=== PATIENT | female | born 1960 | race Caucasian/White ===

== ENCOUNTER 2016-06-16 13:17 | Outpatient (CLI) | payer OTHER | END 2016-06-16 13:18 | disposition home or self-care (01) | DX: Z12.31 Encounter for screening mammogram for malignant neoplasm of breast (principal) ==

== ENCOUNTER 2016-06-16 13:18 | Outpatient (CLI) | payer OTHER | END 2016-06-16 13:19 | disposition home or self-care (01) | DX: N83.209 Unspecified ovarian cyst, unspecified side (principal) ==

== ENCOUNTER 2018-07-19 01:56 | Emergency (ER) | payer BC ==
--- NOTE | 2018-07-19 02:10 | ED Physician Documentation ---
PD HPI CHEST PAIN - Stated complaint Stated Complaint: CHEST PRESSURE/ IRREG HB/NAUSEA - Chief complaint Chief Complaint: Cardiac - History obtained from History obtained from: Patient - History of Present Illness Timing - onset: Enter time (22:30), Today Timing - onset during: Rest Timing - details: Gradual onset, Now resolved, Waxing and waning Quality: Pressure Location: Substernal Radiation: Other (no radiation) Improved by: Nothing Worsened by: Other (no exacerbating factors) Associated symptoms: Palpitations. No: Shortness of air, Diaphoresis, Nausea, Vomiting Similar symptoms before: Diagnosis (PVCs) Recently seen: Clinic - Additional information Additional information: "I was having a lot of PVCs" tonight, approximately 10:30 PM while in bed but awake. 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 She used to have frequent PVCs attributed to MVP, but hadn't had such frequent PVCs for many years until recently and tonight it became particularly frequent and associated with mild chest pressure. Symptoms have resolved by the time of this evaluation (except occasional skipped beat palpitation). She has upcoming appointment with cardiology scheduled for September 13 Review of Systems Cardiac: reports: Chest pain / pressure, Palpitations. denies: Pedal edema, Calf pain Respiratory: reports: Reviewed and negative GI: reports: Reviewed and negative Musculoskeletal: denies: Extremity swelling PD PAST MEDICAL HISTORY - Past Medical History Past Medical History: Yes Cardiovascular: Valve disorder Respiratory: None Neuro: Migraines Endocrine/Autoimmune: None, HyPOthyroidism GI: None TELLER: None : None HEENT: None Psych: Claustrophobia Musculoskeletal: None Derm: None - Past Surgical History General: Cholecystectomy Ortho: Other /TELLER: section - Present Medications Home Medications: Ambulatory Orders Medication Instructions Recorded Confirmed Levothyroxine [Synthroid] 88 mcg PO QDAC 07/19/18 07/19/18 - Allergies Allergies/Adverse Reactions: Allergies Allergy/AdvReac Type Severity Reaction Status Date / Time No Known Drug Allergies Allergy Verified 07/19/18 02:04 - Social History Does the pt smoke?: No Smoking Status: Never smoker Does the pt drink ETOH?: No Does the pt have substance abuse?: No - Immunizations Immunizations are current?: Yes PD ED PE NORMAL - Vitals Vital signs reviewed: Yes - General General: Alert and oriented X 3, No acute distress, Well developed/nourished - Neck Neck: Supple, no meningeal sign - Cardiac Cardiac: RRR (occasional extrasystole (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)), No murmur, No gallop, No rub - Respiratory Respiratory: No respiratory distress, Clear bilaterally - Abdomen Abdomen: Soft, Non tender - Derm Derm: Normal color, Warm and dry - Extremities Extremities: No edema Results - Vitals Vitals: Vital Signs - 24 hr 07/19/18 07/19/18 07/19/18 01:59 02:03 03:13 Temperature 36.5 C 36.7 C Heart Rate 85 70 60 Respiratory 19 13 Rate Blood Pressure 139/78 H 122/66 O2 Saturation 97 94 Oxygen O2 Source Room air - EKG (time done) No standard instances Rate: Rate (enter#) (67) Rhythm: NSR [place]: LAD Intervals: Normal [place], RBBB QRS: LVH Ischemia: Normal ST segments Other comments: Other comments (PVC) - Labs Labs: Laboratory Tests 07/19/18 07/19/18 07/19/18 02:05 02:05 02:05 WBC 7.4 RBC 4.35 Hgb 13.4 Hct 39.8 MCV 91.3 MCH 30.8 MCHC 33.7 RDW 12.9 Plt Count 237 MPV 9.1 Neut # (Auto) 4.6 Lymph # (Auto) 1.9 [place] # (Auto) 0.7 Eos # (Auto) 0.2 Baso # (Auto) 0.0 Absolute Nucleated RBC 0.00 Nucleated RBC % 0.0 Sodium 141 Potassium 3.5 Chloride 104 Carbon Dioxide 26 Anion Gap 11.0 BUN 15 Creatinine 0.7 Estimated GFR (MDRD) 86 L Glucose 139 H Calcium 9.5 Troponin I < 0.04 - Rads (name of study) chest xray Radiology: Prelim report reviewed, See rad report PD MEDICAL DECISION MAKING - ED course Complexity details: reviewed results, re-evaluated patient, considered differential, d/w patient Departure - Departure Disposition: 01 Home, Self Care Clinical Impression: Chest pain, Palpitations Condition: Good Instructions: ED Chest Pain Atypical Unkn Cause, ED Palpitations Follow-Up: Jermaine Albert MD [Primary Care Provider] - Discharge Date/Time: 07/19/18 03:23
[2018-07-19 02:37] LABS: BASOPHILS % (AUTO) 0.6 %; EOSINOPHILS # (AUTO) 0.2 10^3/uL (0.0-0.7); HGB - HEMOGLOBIN 13.4 g/dL (12.0-16.0); LYMPHOCYTES # (AUTO) 1.9 10^3/uL (1.5-3.5); LYMPHOCYTES % (AUTO) 25.7 %; MEAN CORPUSCULAR HEMOGLOBIN 30.8 pg (27.0-31.0); MEAN CORPUSCULAR HGB CONC 33.7 g/dL (32.0-36.0); MEAN CORPUSCULAR VOLUME 91.3 fL (81.0-99.0); MEAN PLATELET VOLUME 9.1 fL (7.9-10.8); MONOCYTES # (AUTO) 0.7 10^3/uL (0.0-1.0); MONOCYTES % (AUTO) 8.8 %; NEUTROPHILS # (AUTO) 4.6 10^3/uL (1.5-6.6); NEUTROPHILS % (AUTO) 61.9 %; PLT - PLATELET COUNT 237 10^3/uL (130-450); RED BLOOD COUNT 4.35 10^6/uL (4.20-5.40); RED CELL DISTRIBUTION WIDTH 12.9 % (12.0-15.0); WHITE BLOOD COUNT 7.4 x10^3/uL (4.8-10.8)
[2018-07-19 02:40] LABS: CALCIUM 9.5 mg/dL (8.5-10.3); CREATININE 0.7 mg/dL (0.4-1.0)
--- NOTE | 2018-07-19 03:01 | XRAY Report ---
Reason: chest pain Procedure Date: 07/19/2018 Accession Number: [id number] / [id number] Procedure: XR - Chest 2 View X-Ray CPT Code: 87675 FULL RESULT: EXAM: CHEST RADIOGRAPHY EXAM DATE: 07/19/2018 02:41 AM. CLINICAL HISTORY: Chest pain, PVCs COMPARISON: XR CHEST PA AND LAT 12/17/2007 2:53 PM XR CHEST PA AND LAT 01/25/2010 4:40 PM. TECHNIQUE: 2 views. FINDINGS: Lungs/Pleura: No focal opacities evident. No pleural effusion. No pneumothorax. Normal volumes. Mediastinum: Heart and mediastinal contours are unremarkable. Other: Right upper quadrant clips indicate prior cholecystectomy. IMPRESSION: Stable appearance of the chest without acute cardiopulmonary abnormality. RADIA
[2018-07-19 03:15] VITALS: BP 122/66
== END 2018-07-19 03:23 | disposition home or self-care (01) ==
LOC: ED 01:56
DX: R07.89 Other chest pain (principal); I49.3 Ventricular premature depolarization; I38 Endocarditis, valve unspecified; E03.9 Hypothyroidism, unspecified; Z79.899 Other long term (current) drug therapy
CPT/HCPCS: 36415; 71046; 80048; 84484; 85025; 93005; 99283; 99284

== ENCOUNTER 2019-04-02 07:43 | Outpatient (CLI) | payer OTHER ==
--- NOTE | 2019-04-02 13:37 | Mammography Report ---
Reason: ROUTINE SCREENING Procedure Date: 04/02/2019 Accession Number: [id number] / [id number] Procedure: [facility] - Screening Mammo w/Francisco CPT Code: Final Report FULL RESULT: EXAM: Screening Mammo w/Francisco DATE: 04/02/2019 9:52 AM CLINICAL HISTORY: Screening encounter. History of benign left breast biopsy. TECHNIQUE: (B) - Bilateral CC and MLO views were obtained. Left laterally exaggerated CC view is obtained. COMPARISON: 06/16/2016 through 08/24/2009. PARENCHYMAL PATTERN: (D) - The breast(s) demonstrate(s) heterogeneously dense fibroglandular parenchyma. FINDINGS: Postbiopsy changes in the left breast are stable. Coarse typically benign calcifications as well as shifting pattern of circumscribed isodense nodules compatible with waxing and waning cysts are redemonstrated. There are no suspicious masses, calcifications, or areas of distortion. IMPRESSION: Benign findings. BI-RADS category 2. RECOMMENDATION: (ANNUAL) - Recommend routine annual screening mammography. BI-RADS CATEGORY: (2) - Benign Findings. STANDARD QUALIFYING STATEMENTS: 1. This examination was not reviewed with the aid of Computer-Aided Detection (CAD). 2. A negative or benign imaging report should not preclude biopsy if clinically suspicious findings are present. 3. Dense breasts may obscure an underlying neoplasm. 4. This examination was reviewed with the aid of 3D breast imaging (tomosynthesis).
== END 2019-04-02 07:44 | disposition home or self-care (01) ==
LOC: DI 07:43
DX: Z12.31 Encounter for screening mammogram for malignant neoplasm of breast (principal)
CPT/HCPCS: 77063; 77067

== ENCOUNTER 2019-06-17 19:00 | Outpatient (CLI) | payer OTHER | END 2019-06-17 19:01 | disposition home or self-care (01) | LOC: COV 19:00 | PROVIDERS: ATTEND Family Medicine | DX: R50.9 Fever, unspecified (principal); R53.83 Other fatigue | CPT/HCPCS: 81599 ==

== ENCOUNTER 2019-08-16 08:00 | Outpatient (CLI) | payer BC, MEDICAID ==
[2019-08-16 14:21] LABS: BASOPHILS % (AUTO) 1.1 %; EOSINOPHILS # (AUTO) 0.3 10^3/uL (0.0-0.7); EOSINOPHILS % (AUTO) 8.2 %; HGB - HEMOGLOBIN 13.9 g/dL (12.0-16.0); LYMPHOCYTES # (AUTO) 1.3 10^3/uL (1.5-3.5); LYMPHOCYTES % (AUTO) 36.5 %; MEAN CORPUSCULAR HGB CONC 33.2 g/dL (32.0-36.0); MEAN CORPUSCULAR VOLUME 93.5 fL (81.0-99.0); MEAN PLATELET VOLUME 10.6 fL (7.9-10.8); MONOCYTES # (AUTO) 0.5 10^3/uL (0.0-1.0); MONOCYTES % (AUTO) 12.8 %; NEUTROPHILS # (AUTO) 1.5 10^3/uL (1.5-6.6); NEUTROPHILS % (AUTO) 41.4 %; PLT - PLATELET COUNT 284 10^3/uL (130-450); RED BLOOD COUNT 4.48 10^6/uL (4.20-5.40); RED CELL DISTRIBUTION WIDTH 12.3 % (12.0-15.0); WHITE BLOOD COUNT 3.7 x10^3/uL (4.8-10.8)
[2019-08-16 14:55] LABS: ALBUMIN 4.5 g/dL (3.2-5.5); ALBUMIN/GLOBULIN RATIO 1.5 (1.0-2.2); ALKALINE PHOSPHATASE 68 IU/L (42-121); ALT ALANINE AMINOTRANSFERASE 24 IU/L (10-60); AST ASPARTATE AMINOTRANSFERASE 18 IU/L (10-42); BILIRUBIN,TOTAL 0.3 mg/dL (0.2-1.0); BUN - BLOOD UREA NITROGEN 12 mg/dL (6-20); CALCIUM 9.2 mg/dL (8.5-10.3); CARBON DIOXIDE - CO2 27 mmol/L (21-32); CHLORIDE 104 mmol/L (101-111); CK- CREATINE KINASE 77 IU/L (22-269); CREATININE 0.6 mg/dL (0.4-1.0); GLUCOSE 93 mg/dL (70-100); SODIUM 139 mmol/L (135-145); TOTAL PROTEIN 7.5 g/dL (6.7-8.2)
[2019-08-16 15:13] LABS: CRP - C-REACTIVE PROTEIN < 1.0 mg/dL (0-1.0)
== END 2019-08-16 23:59 | disposition home or self-care (01) ==
LOC: LAB.S 08:00
PROVIDERS: ATTEND Physician Assistant
DX: M79.10 Myalgia, unspecified site (principal)
CPT/HCPCS: 36415; 80053; 82550; 85025; 85651; 86140

== ENCOUNTER 2019-08-21 09:34 | Outpatient (CLI) | payer BC ==
[2019-08-21 11:56] LABS: BASOPHILS # (AUTO) 0.1 10^3/uL (0.0-0.1); BASOPHILS % (AUTO) 1.2 %; EOSINOPHILS # (AUTO) 0.3 10^3/uL (0.0-0.7); EOSINOPHILS % (AUTO) 4.2 %; HGB - HEMOGLOBIN 14.1 g/dL (12.0-16.0); LYMPHOCYTES # (AUTO) 2.1 10^3/uL (1.5-3.5); LYMPHOCYTES % (AUTO) 30.2 %; MEAN CORPUSCULAR HEMOGLOBIN 30.1 pg (27.0-31.0); MEAN CORPUSCULAR HGB CONC 32.2 g/dL (32.0-36.0); MEAN CORPUSCULAR VOLUME 93.6 fL (81.0-99.0); MEAN PLATELET VOLUME 10.5 fL (7.9-10.8); MONOCYTES # (AUTO) 0.5 10^3/uL (0.0-1.0); MONOCYTES % (AUTO) 7.5 %; NEUTROPHILS # (AUTO) 3.9 10^3/uL (1.5-6.6); NEUTROPHILS % (AUTO) 56.5 %; PLT - PLATELET COUNT 333 10^3/uL (130-450); RED BLOOD COUNT 4.68 10^6/uL (4.20-5.40); RED CELL DISTRIBUTION WIDTH 12.3 % (12.0-15.0); WHITE BLOOD COUNT 6.9 x10^3/uL (4.8-10.8)
[2019-08-21 12:12] LABS: ALBUMIN 4.3 g/dL (3.2-5.5); ALBUMIN/GLOBULIN RATIO 1.4 (1.0-2.2); ALKALINE PHOSPHATASE 68 IU/L (42-121); ALT ALANINE AMINOTRANSFERASE 20 IU/L (10-60); AST ASPARTATE AMINOTRANSFERASE 16 IU/L (10-42); BILIRUBIN,TOTAL 0.2 mg/dL (0.2-1.0); BUN - BLOOD UREA NITROGEN 20 mg/dL (6-20); CALCIUM 9.3 mg/dL (8.5-10.3); CARBON DIOXIDE - CO2 28 mmol/L (21-32); CHLORIDE 104 mmol/L (101-111); CHOL/HDL RATIO 4.3 (<4.4); CHOLESTEROL 234 mg/dL; CREATININE 0.6 mg/dL (0.4-1.0); GLUCOSE 99 mg/dL (70-100); HDL CHOLESTEROL 55 mg/dL; LDL CHOLESTEROL,CALCULATED 156 mg/dL; LDL/HDL RATIO 2.8 (<4.4); SODIUM 138 mmol/L (135-145); TOTAL PROTEIN 7.4 g/dL (6.7-8.2); VLDL CHOLESTEROL 23 mg/dL
== END 2019-08-21 09:35 | disposition home or self-care (01) ==
LOC: LAB.WCP 09:34
PROVIDERS: ATTEND Nurse Practitioner
DX: D72.819 Decreased white blood cell count, unspecified (principal); Z11.9 Encounter for screening for infectious and parasitic diseases, unspecified; R00.2 Palpitations; E78.2 Mixed hyperlipidemia; E55.9 Vitamin D deficiency, unspecified; B00.9 Herpesviral infection, unspecified; E03.9 Hypothyroidism, unspecified
CPT/HCPCS: 36415; 80053; 80061; 82306; 83721; 84443; 85025; 86769

== ENCOUNTER 2019-12-26 13:32 | Day surgery (SDC) | payer BC ==
[2019-12-26] MEDS ORDERED: MIDAZOLAM 2 MG/2 ML VIAL IVP ONE (13:33)
[2019-12-26] MEDS ORDERED: fentaNYL 250 MCG/5 ML VIAL IVP ONE (13:33)
[2019-12-26] MEDS ORDERED: LACTATED RINGERS 1,000 ML IV ONE (14:11)
[2019-12-26] MEDS ORDERED: LACTATED RINGERS 500 ML IV ONE (15:18)
[2019-12-26 16:09] VITALS: BP 90/61
== END 2019-12-26 13:33 | disposition home or self-care (01) ==
LOC: SDS 13:32
PROVIDERS: ATTEND Surgery
DX: Z12.11 Encounter for screening for malignant neoplasm of colon (principal); K57.30 Diverticulosis of large intestine without perforation or abscess without bleeding; E03.9 Hypothyroidism, unspecified; I48.91 Unspecified atrial fibrillation
CPT/HCPCS: 45378; J3010; J7120